=== PATIENT | female | born 1980 | race African-American/Black ===

== ENCOUNTER 2016-08-08 07:00 | Emergency (ER) | payer MEDICAID, OTHER ==
[~2016-08-08] VITALS: Ht 172.7 cm; Wt 136.0 kg
[2016-08-08] MEDS ORDERED: LORazepam 1 MG TABLET PO ONE (07:30)
[2016-08-08] MEDS ORDERED: KETOROLAC TROMETHAMINE 60 MG/2 ML VIAL IM ONE (07:30)
[2016-08-08] MEDS ORDERED: OxyCODONE HCL/ACETAMINOPHEN 5-325 MG TABLET PO ONE (07:30)
[2016-08-08 09:28] VITALS: BP 130/87
== END 2016-08-08 09:29 | disposition home or self-care (01) ==
LOC: EMS 07:01
DX: S29.012A Strain of muscle and tendon of back wall of thorax, initial encounter (principal); X58.XXXA Exposure to other specified factors, initial encounter; Y93.89 Activity, other specified; Y92.89 Other specified places as the place of occurrence of the external cause; Y99.8 Other external cause status
CPT/HCPCS: 71020; 73030; 96372; 99284; J1885

== ENCOUNTER 2021-06-23 16:50 | Emergency (ER) | payer OTHER ==
[~2021-06-23] VITALS: Ht 172.7 cm; Wt 122.7 kg
[2021-06-23 18:00] VITALS: BP 141/96
[2021-06-23] MEDS: LIDOCAINE 5% TRANSDERMAL PATCH TD ONE (18:09)
[2021-06-23] MEDS: KETOROLAC TROMETHAMINE 30 MG/ML VIAL IM ONE (18:09)
[2021-06-23] MEDS: CYCLOBENZAPRINE HCL 10 MG TABLET PO ONE (18:14)
== END 2021-06-23 19:20 | disposition home or self-care (01) ==
LOC: EMS 17:09
DX: M54.50 Low back pain, unspecified (principal); V49.49XA Driver injured in collision with other motor vehicles in traffic accident, initial encounter; Y93.89 Activity, other specified; Y92.89 Other specified places as the place of occurrence of the external cause; Y99.8 Other external cause status
CPT/HCPCS: 96372; 99283; J1885